=== PATIENT | male | born 1970 | race Caucasian/White ===

== ENCOUNTER 2017-01-12 01:02 | Emergency (ER) | payer SELFPAY ==
[2017-01-12 01:11] VITALS: BP 128/80; PULSE 80; RESP 14; TEMP 97.6; O2SAT 98
--- NOTE | 2017-01-12 01:52 | C.PDOC ---
History Of Present Illness Patient is a 46 year old male who presents to the ER with a toothache to the left upper molar area. Patient denies recent injury or trauma. Chief Complaint (Nursing): Dental Pain History Per: Patient History/Exam Limitations: no limitations Onset/Duration Of Symptoms: Hrs Current Symptoms Are (Timing): Still Present Quality: Positive for: Other (Toothache) Recent travel outside of the [place]: No Past Medical History Reviewed: Historical Data, Nursing Documentation, Vital Signs Vital Signs: Last Vital Signs Temp 97.6 F 01/12/17 01:08 Pulse 80 01/12/17 01:08 Resp 14 01/12/17 01:08 BP 128/80 01/12/17 01:08 Pulse Ox 98 01/12/17 01:52 - Medical History PMH: No Chronic Diseases Surgical History: No Surg Hx Family History: States: Unknown Family Hx - Social History Hx Alcohol Use: Yes Hx Substance Use: No - Immunization History Hx Tetanus Toxoid Vaccination: Yes Hx Influenza Vaccination: No Hx Pneumococcal Vaccination: No Review Of Systems ENT: Positive for: Mouth Pain (Toothache to left upper molar area) Physical Exam - Physical Exam Appears: Well, Non-toxic, No Acute Distress Skin: Normal Color, Warm, Dry Head: Atraumatic, Normacephalic Oral Mucosa: Moist Teeth: Normal Dentition, No Caries Gingiva: No Erythema (surrounding left upper molar), No Swelling (surrounding left upper molar), Tender (surrounding left upper molar) Neurological/Psych: Oriented x3, Normal Speech, Normal Cognition ED Course And Treatment O2 Sat by Pulse Oximetry: 98 (Room air) Pulse Ox Interpretation: Normal Progress Note: Amoxicillin and ultram administered. Disposition Counseled Patient/Family Regarding: Diagnosis - Disposition Referrals: [facility] [Outside] Disposition Time: 01:49 Condition: STABLE Prescriptions: Amoxicillin [Amoxil 500 mg Cap] 500 mg PO TID #20 cap traMADol/Acetaminophen [Ultracet 325 MG-37.5 MG] 1 tab PO Q4 #14 tab Instructions: Benzocaine (By mouth), Toothache (ED) - POA Present On Arrival: None - Clinical Impression Clinical Impression: Pain, dental - Scribe Statement The provider has reviewed the documentation as recorded by the Scribbryan Packer All medical record entries made by the Germánibbryan were at my direction and personally dictated by me. I have reviewed the chart and agree that the record accurately reflects my personal performance of the history, physical exam, medical decision making, and the department course for this patient. I have also personally directed, reviewed, and agree with the discharge instructions and disposition.
== END 2017-01-12 02:01 | disposition home or self-care (01) ==
LOC: C.ER 01:02
DX: K08.89 Other specified disorders of teeth and supporting structures (principal)